=== PATIENT | female | born 1995 | race Hispanic/Latino ===

== ENCOUNTER → 2021-10-13 17:03 | Outpatient (CLI) | payer OTHER, SELFPAY ==
[2021-10-13 17:58] LABS: Appearance Urine UA CLEAR; Bilirubin Urine UA 2+ (NEGATIVE); Color Urine UA YELLOW; Glucose Urine UA NEGATIVE (Negative); Ketones Urine UA NEGATIVE (NEGATIVE); Leukocyte Esterase Urine UA NEGATIVE (NEGATIVE); Nitrite Urine UA NEGATIVE (Negative); Occult Blood Urine UA 1+ (Negative); Protein Urine UA NEGATIVE (Negative); Specific Gravity Urine UA 1.015 (1.000-1.035); Urobilinogen Urine UA 0.2 E.U./dL (0.2)
[2021-10-13 17:59] LABS: Add Manual Diff / Slide Review NO; Basophils Absolute Auto 0 /uL (0-100); Basophils Percent Auto 0.2 % (0-2); Eosinophils Absolute Auto 100 /uL (0-450); Eosinophils Percent Auto 1.1 % (2-4); Hematocrit 34.2 % (36-46); Hemoglobin 11.6 g/dL (12.0-16.0); Lymphocytes Absolute Auto 1000 /uL (1100-4500); Lymphocytes Percent Auto 12.8 % (25-40); Mean Corpuscular HGB Conc 33.8 % (30-36); Mean Corpuscular Hemoglobin 27.8 PG (26-34); Mean Corpuscular Volume 82.2 fL (80-100); Monocytes Absolute Auto 600 /uL (0-900); Monocytes Percent Auto 7.3 % (3-14); Neutrophils Absolute Auto 6100 /uL (1500-7000); Neutrophils Percent Auto 78.6 % (50-75); Platelet Count 206 X10^3/uL (150-400); Red Blood Cell Count 4.15 X10^6/uL (4.0-5.2); Red Cell Distribution Width 13.8 % (11.6-14.8); White Blood Cell Count 7.8 X10^3/uL (4.5-11.0)
[2021-10-13 18:24] LABS: pH Urine UA 7.5 (4.5-8.0)
[2021-10-13 18:28] LABS: Bacteria Urine None Seen; RBC Urine 1-5/HPF (0-5/HPF); WBC Urine None Seen (0-5/HPF)
[2021-10-13 18:32] LABS: Ictotest Urine Negative (Negative)
[2021-10-13 18:37] LABS: Free T4, Direct Thyroxine 1.09 ng/dL (0.78-2.19)
[2021-10-13 18:51] LABS: Thyroid Stimulating Hormone 7.14 uIU/mL (0.47-4.68)
[2021-10-14 08:26] LABS: RPR Screen Non Reactive (Non Reactive)
[2021-10-14 08:36] LABS: Varicella IgG Antibody 196 index (Immune >165)
[2021-10-15 17:27] LABS: Hepatitis B Surface Antigen NEGATIVE s/c (NEGATIVE)
[2021-10-15 17:29] LABS: HIV 1 & 2 Ab/Ag 4th Gen Combo NEGATIVE (NEGATIVE); Hep C Virus Ab w/Reflex Quant NEGATIVE s/c (NEGATIVE)
== END ==
PROVIDERS: Referring Provider Obstetrics & Gynecology; Visit Provider Obstetrics & Gynecology
DX: Z34.81 Encounter for supervision of other normal pregnancy, first trimester (principal); E03.9 Hypothyroidism, unspecified
CPT/HCPCS: 36415; 80055; 81003; 81015; 84439; 84443; 86787; 86803; 86850; 86900; 86901; 87086; 87389

== ENCOUNTER → 2021-12-22 10:44 | Outpatient (CLI) | payer OTHER, SELFPAY ==
--- NOTE | 2021-12-22 10:46 | DI.US.S_ITS ---
PROCEDURE: US OB >= 14 WEEKS FETUS INDICATIONS: 20 WEEK ANATOMY SCAN OUTSIDE/PRIOR DATING DATA: Last menstrual period (LMP): August 04, 2021 LMP-based estimated date of delivery (JOEY): May 11, 2022 First dating scan (date and location): December 22, 2021 Estimated date of delivery (JOEY) from first dating scan: May 05, 2022 The calculations are made using the ultrasound JOEY of May 05, 2022 TECHNIQUE: Real-time scanning was performed of the fetus, with image documentation and biometric measurements. Endovaginal scanning: Performed COMPARISON: None. FINDINGS: General: A single living intrauterine gestation is present. Presentation: Variable Placenta: Placental position is anterior left, without previa. Amniotic fluid index: 11.2 cm, normal range is 5-24 cm. Single deepest vertical pocket is 3.7 cm. heart rate: 152 beats per minute. Maternal cervical canal: Closed and 4.4 cm long. Normal lower limit is 2.5 cm. biometrics: Biparietal diameter: 21 weeks 1 day Head circumference: 20 weeks 5 days Abdominal circumference: 21 weeks 2 days Femur length: 20 weeks 1 day Clinically estimated gestational age: 20 weeks 0 days Composite gestational age from present scan: 20 weeks 6 days Estimated weight and percentile: 379 grams; 87th percentile Anatomic survey: Neuro: Ventricles are non-dilated at less than 10 mm. Cisterna magna is normal at 3-11 mm. Cerebellum is normal in size and morphology. Nuchal skin fold: Normal at less than 6 mm between 14-21 weeks gestational age. Face: Suboptimal due to maternal body habitus. Spine: Suboptimal. Heart: Suboptimal. Diaphragm: Diaphragm is intact. Stomach: Left-sided stomach is present. Kidneys: Suboptimal. Cord: 3-vessel cord. Placental cord insertion not well seen. Bladder: Normal in size. Extremities: All 4 extremities identified. IMPRESSION: 1. Single living intrauterine with ultrasound estimated gestational age of 20 weeks 6 days. 2. anatomic survey suboptimal secondary to maternal body habitus. Well visualized anatomy is within normal limits. 3. Normal amniotic fluid index. Dictated by: Di Troncoso MD, PhD on 12/22/2021 at 17:23 Approved by: Di Troncoso MD, PhD on 12/22/2021 at 17:28
== END ==
PROVIDERS: PCP Physician Assistant; Referring Provider Obstetrics & Gynecology; Visit Provider Obstetrics & Gynecology
DX: Z34.82 Encounter for supervision of other normal pregnancy, second trimester (principal); Z3A.20 20 weeks gestation of pregnancy
CPT/HCPCS: 76811

== ENCOUNTER 2021-12-31 11:08 | Emergency (ER) | payer OTHER, SELFPAY ==
[2021-12-31] VITALS (13 sets, daily range): BP systolic 103–134; BP diastolic 59–85; PULSE 82–99; RESP 15–21; TEMP 36.6; O2SAT 97–100; BMI 39.8
--- NOTE | 2021-12-31 11:17 | DI.RAD.S_ITS ---
PROCEDURE: XR CHEST 1V INDICATIONS: chest pain TECHNIQUE: One view of the chest was acquired. COMPARISON: None. FINDINGS: Surgical changes and devices: None. Lungs and pleura: Lungs are clear. No pleural effusions or pneumothorax. Mediastinum: Mediastinal contours appear normal. Heart size is normal. Bones and chest wall: No suspicious bony lesions. Overlying soft tissues appear unremarkable. IMPRESSION: No acute cardiopulmonary findings. Dictated by: Maria Del Carmen Galvan M.D. on 12/31/2021 at 12:17 Approved by: Maria Del Carmen Galvan M.D. on 12/31/2021 at 12:33
[2021-12-31 11:34] LABS: Add Manual Diff / Slide Review NO; Basophils Absolute Auto 0 /uL (0-100); Basophils Percent Auto 0.3 % (0-2); Eosinophils Absolute Auto 100 /uL (0-450); Eosinophils Percent Auto 0.9 % (2-4); Hematocrit 34.4 % (36-46); Hemoglobin 11.4 g/dL (12.0-16.0); Lymphocytes Absolute Auto 1000 /uL (1100-4500); Lymphocytes Percent Auto 11.9 % (25-40); Mean Corpuscular HGB Conc 33.1 % (30-36); Mean Corpuscular Hemoglobin 27.5 PG (26-34); Monocytes Absolute Auto 600 /uL (0-900); Monocytes Percent Auto 7.5 % (3-14); Neutrophils Absolute Auto 6700 /uL (1500-7000); Neutrophils Percent Auto 79.4 % (50-75); Platelet Count 203 X10^3/uL (150-400); Red Blood Cell Count 4.14 X10^6/uL (4.0-5.2); Red Cell Distribution Width 13.2 % (11.6-14.8); White Blood Cell Count 8.4 X10^3/uL (4.5-11.0)
[2021-12-31 11:43] LABS: Alanine Aminotransferase 25 IU/L (<35); Albumin 4.1 g/dL (3.5-5.0); Albumin Globulin Ratio 1.1 (1.0-2.8); Alkaline Phosphatase 81 U/L (38-126); Aspartate Aminotransferase 22 IU/L (14-36); BUN Creatinine Ratio 11.9 (6-22); Bilirubin Total 0.4 mg/dL (0.2-1.3); Blood Urea Nitrogen 7 mg/dL (7-17); Calcium 9.3 mg/dL (8.4-10.2); Carbon Dioxide 26 mmol/L (22-32); Chloride 102 mmol/L (98-107); Creatine Kinase < 20 U/L (30-135); Estimated Glomerular Filt Rate > 60.0 mL/min (>60); Globulin 3.9 g/dL (1.7-4.1); Glucose 107 mg/dL (70-100); HEMOLYSIS < 15 (0-50); Lipase 71 U/L (23-300); Magnesium 1.7 mg/dL (1.6-2.3); Potassium 3.9 mmol/L (3.4-5.1); Sodium 134 mmol/L (137-145)
[2021-12-31 11:55] LABS: Troponin I < 0.012 ng/mL (0.01-0.034)
[2021-12-31 13:00] LABS: RBC Urine 0-1/HPF (0-5/HPF); Squamous Epithelial Cell Urine 5-10 /HPF (0-5/HPF)
[2021-12-31 13:03] LABS: Bacteria Urine Few (2-10); WBC Urine 5-10/HPF (0-5/HPF)
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
--- NOTE | 2021-12-31 13:50 | PC.NURSE ---
bilateral blood pressures done at 1225 left arm 117/71 hr 86 right arm 112/68 hr 87
[2021-12-31 14:21] LABS: Troponin I < 0.012 ng/mL (0.01-0.034)
== END 2021-12-31 15:04 | disposition home or self-care (01) ==
PROVIDERS: Emergency Provider Emergency Medicine; PCP Physician Assistant; Referring Provider Obstetrics & Gynecology
DX: R07.89 Other chest pain (principal); R20.2 Paresthesia of skin
CPT/HCPCS: 36415; 71045; 80053; 81003; 81015; 82550; 83690; 83735; 84484; 85025; 87086; 93005; 99284

== ENCOUNTER → 2022-01-19 14:32 | Outpatient (CLI) | payer OTHER, SELFPAY ==
[2022-01-19 16:44] LABS: Free T4, Direct Thyroxine 1.08 ng/dL (0.78-2.19)
[2022-01-19 16:58] LABS: TSH w/ Reflex to FT4 1.84 uIU/mL (0.47-4.68)
== END ==
PROVIDERS: PCP Physician Assistant; Referring Provider Obstetrics & Gynecology; Visit Provider Obstetrics & Gynecology
DX: Z34.90 Encounter for supervision of normal pregnancy, unspecified, unspecified trimester (principal)
CPT/HCPCS: 36415; 84439; 84443

== ENCOUNTER → 2022-02-16 08:38 | Outpatient (CLI) | payer OTHER, SELFPAY ==
[2022-02-16 10:17] LABS: Hematocrit 31.9 % (36-46); Hemoglobin 10.6 g/dL (12.0-16.0)
[2022-02-16 10:33] LABS: GTT (PREG) 1 Hour PP 50gm Dose 102 mg/dL (76-139)
== END ==
PROVIDERS: PCP Physician Assistant; Referring Provider Obstetrics & Gynecology; Visit Provider Obstetrics & Gynecology
DX: Z34.83 Encounter for supervision of other normal pregnancy, third trimester (principal); Z3A.28 28 weeks gestation of pregnancy
CPT/HCPCS: 36415; 82950; 85014; 85018

== ENCOUNTER 2022-03-15 13:40 | Outpatient (CLI) | payer OTHER, SELFPAY ==
[2022-03-15 14:57] LABS: Appearance Urine UA CLOUDY; Bilirubin Urine UA NEGATIVE (NEGATIVE); Color Urine UA YELLOW; Glucose Urine UA NEGATIVE (Negative); Ketones Urine UA TRACE (NEGATIVE); Leukocyte Esterase Urine UA 2+ (NEGATIVE); Nitrite Urine UA NEGATIVE (Negative); Occult Blood Urine UA TRACE-INTACT (Negative); Protein Urine UA TRACE (Negative); Specific Gravity Urine UA 1.025 (1.000-1.035); Urobilinogen Urine UA 0.2 E.U./dL (0.2)
[2022-03-15 15:09] LABS: Amorphous Sediment Urine 1+; Bacteria Urine Occasional (0-1); Culture Indicated Urine Cult Not Indicated; RBC Urine 0-1/HPF (0-5/HPF); Squamous Epithelial Cell Urine 5-10 /HPF (0-5/HPF); WBC Urine 1-5/HPF (0-5/HPF)
[2022-03-15] MEDS: cephALEXin 250 MG CAPSULE 500 MG PO (15:46)
[2022-03-15 15:59] VITALS: BP 117/68; PULSE 100; RESP 20; TEMP 36.4
== END 2022-03-15 16:15 | disposition home or self-care (01) ==
LOC: LABOR 15:43 → OB 03-16 08:04
PROVIDERS: PCP Physician Assistant; Referring Provider Obstetrics & Gynecology; Visit Provider Obstetrics & Gynecology
DX: O36.8130 Decreased fetal movements, third trimester, not applicable or unspecified (principal); O47.03 False labor before 37 completed weeks of gestation, third trimester; Z3A.31 31 weeks gestation of pregnancy
CPT/HCPCS: 59025; 59050; 81003; 81015; G0378; G0379

== ENCOUNTER → 2022-04-02 14:47 | Outpatient (CLI) | payer OTHER, SELFPAY ==
[2022-04-02 15:57] LABS: Add Manual Diff / Slide Review NO; Basophils Absolute Auto 0 /uL (0-100); Basophils Percent Auto 0.2 % (0-2); Eosinophils Absolute Auto 100 /uL (0-450); Eosinophils Percent Auto 1.1 % (2-4); Hematocrit 33.8 % (36-46); Hemoglobin 11.4 g/dL (12.0-16.0); Lymphocytes Absolute Auto 1000 /uL (1100-4500); Lymphocytes Percent Auto 11.7 % (25-40); Mean Corpuscular HGB Conc 33.8 % (30-36); Mean Corpuscular Hemoglobin 27.5 PG (26-34); Mean Corpuscular Volume 81.5 fL (80-100); Monocytes Absolute Auto 700 /uL (0-900); Monocytes Percent Auto 8.7 % (3-14); Neutrophils Absolute Auto 6400 /uL (1500-7000); Neutrophils Percent Auto 78.3 % (50-75); Platelet Count 205 X10^3/uL (150-400); Red Blood Cell Count 4.14 X10^6/uL (4.0-5.2); White Blood Cell Count 8.2 X10^3/uL (4.5-11.0)
[2022-04-02 16:30] LABS: Free T4, Direct Thyroxine 1.13 ng/dL (0.78-2.19)
[2022-04-02 16:44] LABS: Thyroid Stimulating Hormone 1.57 uIU/mL (0.47-4.68)
== END ==
PROVIDERS: PCP Physician Assistant; Referring Provider Obstetrics & Gynecology; Visit Provider Obstetrics & Gynecology
DX: E03.9 Hypothyroidism, unspecified (principal); Z34.90 Encounter for supervision of normal pregnancy, unspecified, unspecified trimester
CPT/HCPCS: 36415; 84439; 84443; 85025

== ENCOUNTER → 2022-04-16 17:24 | Outpatient (CLI) | payer OTHER, SELFPAY ==
[2022-04-17 13:34] LABS: Strep Grp B PCR POS for Grp B Strep
== END ==
PROVIDERS: PCP Physician Assistant; Visit Provider Obstetrics & Gynecology
DX: Z34.83 Encounter for supervision of other normal pregnancy, third trimester (principal); Z3A.36 36 weeks gestation of pregnancy
CPT/HCPCS: 87653

== ENCOUNTER 2022-04-21 07:35 | Inpatient (IN) | payer OTHER, SELFPAY ==
[2022-04-21] MEDS: NIFEdipine 10 MG CAPSULE PO ×4 (08:40→10:03)
[2022-04-21] MEDS: LACTATED RINGERS 1,000 ML 1000 ML IV (09:40)
[2022-04-21] MEDS: LACTATED RINGERS 1,000 ML 100 ML IV ×4 (10:40→19:30)
[2022-04-21 11:31] LABS: Appearance Urine UA CLEAR; Bilirubin Urine UA NEGATIVE (NEGATIVE); Color Urine UA YELLOW; Glucose Urine UA NEGATIVE (Negative); Ketones Urine UA NEGATIVE (NEGATIVE); Leukocyte Esterase Urine UA 1+ (NEGATIVE); Nitrite Urine UA NEGATIVE (Negative); Occult Blood Urine UA NEGATIVE (Negative); Protein Urine UA NEGATIVE (Negative); Specific Gravity Urine UA <=1.005 (1.000-1.035); Urobilinogen Urine UA 0.2 E.U./dL (0.2)
[2022-04-21 11:41] LABS: pH Urine UA 6.5 (4.5-8.0)
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
[2022-04-21 11:50] LABS: Bacteria Urine Occasional (0-1); Culture Indicated Urine Specimen Cultured; RBC Urine 0-1/HPF (0-5/HPF); Squamous Epithelial Cell Urine 5-10 /HPF (0-5/HPF); WBC Urine 1-5/HPF (0-5/HPF)
--- NOTE | 2022-04-21 12:45 | PM.PREOP ---
Pre-operative Note COVID-19 COVID-19 status: Result pending Result date/Date tested (Pos, Neg/Pending): 04/21/22 Criteria for continued procedure: Expected advancement of disease process Interval Note History & Physical reviewed/Exam performed by Physician: Yes Changes to H&P: No
[2022-04-21 14:13] LABS: Add Manual Diff / Slide Review NO; Basophils Absolute Auto 0 /uL (0-100); Basophils Percent Auto 0.4 % (0-2); Eosinophils Absolute Auto 0 /uL (0-450); Eosinophils Percent Auto 0.6 % (2-4); Hemoglobin 11.8 g/dL (12.0-16.0); Lymphocytes Absolute Auto 900 /uL (1100-4500); Lymphocytes Percent Auto 11.3 % (25-40); Mean Corpuscular HGB Conc 34.6 % (30-36); Mean Corpuscular Hemoglobin 28.1 PG (26-34); Mean Corpuscular Volume 81.3 fL (80-100); Monocytes Absolute Auto 600 /uL (0-900); Monocytes Percent Auto 7.6 % (3-14); Neutrophils Absolute Auto 6300 /uL (1500-7000); Neutrophils Percent Auto 80.1 % (50-75); Platelet Count 200 X10^3/uL (150-400); Red Blood Cell Count 4.18 X10^6/uL (4.0-5.2); Red Cell Distribution Width 14.3 % (11.6-14.8); White Blood Cell Count 7.9 X10^3/uL (4.5-11.0)
[2022-04-21 14:30] VITALS: BP 120/69
[2022-04-21 14:58] LABS: COVID19 -Nasal RAPID Negative (Negative)
[2022-04-21] MEDS: CEFAZOLIN 2 GM/20 ML SYRINGE IV (15:50)
--- NOTE | 2022-04-21 16:16 | SUR.OPER ---
Supine on padded OR bed, head on pillow, arms secured on padded arm boards at <90 degrees abduction, legs uncrossed, safety belt at thigh, tape over blanket over lower legs. Directed and approved by surgeon
--- NOTE | 2022-04-21 16:28 | SUR.OPER ---
Viable baby boy delivered at 1611. Placenta delivered at 1612. Placenta and cord blood tubes sent with OB OFE Melo.
[2022-04-21 16:54] VITALS: BP 100/52; PULSE 74; RESP 12; TEMP 36.3; O2SAT 98
[2022-04-21 17:01] VITALS: BP 106/70; PULSE 78; RESP 18; O2SAT 98
[2022-04-21 17:11] VITALS: BP 108/69; PULSE 72; RESP 16; O2SAT 98
[2022-04-21 17:15] VITALS: BP 101/60; PULSE 71; RESP 17; TEMP 36.3; O2SAT 97
--- NOTE | 2022-04-21 17:23 | PM.OP.1 ---
Operative Date/Time/Diagnoses Date of procedure: 04/21/22 Time of procedure: 17:23 Pre-op diagnosis: Breech presentation in labor Post-op diagnosis: same Procedure & Clinicians Procedure: Primary low-transverse section Same procedure as scheduled: Yes Indications: Breech presentation in labor Surgeon: Obdulia Frias Click Yes if Unassisted: Yes Anesthesia Type: Spinal Operative Notes Findings: Normal tubes, ovaries, uterus. Viable male in complete breech presentation with Apgars of 8 9 weight 6 lb 13 oz Closure Type: primary Specimen(s): none sent Applied: catheter (Hernandez) Estimated Blood Loss (mL): 450 Blood products transfused: none Procedure in detail: The patient was brought to the operating room where she underwent a spinal for anesthesia. She was placed in a supine position with a left lateral tilt. A Hernandez catheter was placed. Pulsatile stockings were placed and functional throughout the case. 2 g of Ancef were given IV prior to the incision. Warming was in place. The patient was prepped and draped in usual sterile fashion. A low transverse incision was made with a scalpel and the incision was carried down to the fascial layer which was incised transversely with scissors. The midline attachments are superiorly and inferiorly. Some bleeding was controlled Bovie. The rectus muscles were in the midline and the peritoneal incision was made with no damage to internal structures. The peritoneum was incised and superiorly and inferiorly. The incision was stretched with the surgeon and residential real estate assistant placing traction. Bladder blade was placed and a bladder flap was developed and the bladder held away from the lower uterine segment. An incision was made in the uterus with the scalpel and the incision was extended with stretching. The breech was elevated out of the abdomen and a moist towel placed around the baby and with fundal pressure by the residential real estate assistant and delivered to the shoulders. The baby was rotated allowing delivery of the arms and the head delivered easily. The baby was delivered. The was bulb suctioned for clear fluid and handed off to the warmer. Cord blood was collected. The placenta delivered spontaneously with traction. The uterus was cleaned with clean laps. The uterine incision was closed in 2 layers of 0 chromic suture the first a running locking layer the second an imbricating layer. The bladder peritoneum was repaired with 2-0 Vicryl suture. The gutters were cleaned of any remaining fluids and ovaries and tubes were observed to be normal. Adequate hemostasis was noted. The perineum was closed with 2-0 Vicryl suture. The fascia layer was closed with 0 Vicryl suture with 2 stitches. The incision was irrigated and adequate hemostasis noted. The incision was closed with interrupted 3-0 Vicryl sutures and then a subcuticular stitch of 4-0 Vicryl suture. Steri-Strips were placed. The uterus was massaged to remove any clots. The patient went to recovery room in good condition. Counts of instruments and sponges were correct. Complications: none Post-operative Condition: stable Disposition: other ( Center) Plan for aftercare: Routine post section
--- NOTE | 2022-04-21 17:42 | SUR.PHASEI ---
1717: [facility] Report given to OFE Melo using SBAR with time allowed for questions. All personal belonging with pt during transport.
[2022-04-21] MEDS: KETOROLAC 30 MG/ML VIAL IV (22:35)
[2022-04-22 01:16] VITALS: BP 122/74; PULSE 77; RESP 16; TEMP 36.9
[2022-04-22] MEDS: KETOROLAC 30 MG/ML VIAL IV ×2 (04:34→11:10)
[2022-04-22] MEDS: LEVOTHYROXINE 112 MCG TABLET PO (05:27)
[2022-04-22 06:52] LABS: Add Manual Diff / Slide Review NO; Basophils Absolute Auto 0 /uL (0-100); Basophils Percent Auto 0.2 % (0-2); Eosinophils Absolute Auto 100 /uL (0-450); Eosinophils Percent Auto 0.8 % (2-4); Hematocrit 32.7 % (36-46); Hemoglobin 11.1 g/dL (12.0-16.0); Lymphocytes Absolute Auto 1000 /uL (1100-4500); Lymphocytes Percent Auto 10.7 % (25-40); Mean Corpuscular HGB Conc 33.8 % (30-36); Mean Corpuscular Hemoglobin 27.8 PG (26-34); Mean Corpuscular Volume 82.2 fL (80-100); Monocytes Absolute Auto 900 /uL (0-900); Monocytes Percent Auto 9.6 % (3-14); Neutrophils Absolute Auto 7500 /uL (1500-7000); Neutrophils Percent Auto 78.7 % (50-75); Platelet Count 171 X10^3/uL (150-400); Red Blood Cell Count 3.98 X10^6/uL (4.0-5.2); Red Cell Distribution Width 14.4 % (11.6-14.8); White Blood Cell Count 9.5 X10^3/uL (4.5-11.0)
[2022-04-22] MEDS: DOCUSATE 100 MG CAPSULE 200 MG PO (09:01)
[2022-04-22] MEDS: PRENATAL VIT,CALC/IRON/FOLIC 1 TABLET 1 TAB PO (09:01)
[2022-04-22] MEDS: ACETAMINOPHEN 325 MG TABLET 650 MG PO ×3 (09:01→21:49)
--- NOTE | 2022-04-22 11:48 | PM.OBPN.1 ---
Subjective - OB Subjective Patient comments: no complaints, pain well controlled, tolerating diet and flatus present baby status: doing well Corea feeding status: exclusively breast feeding Narrative: Patient is POD#1 s/p pCS for breech in the setting of labor at 37 weeks. Is ambulating, voiding, tolerating PO, passing flatus, mild lochia, no other symptoms or concerns. Date Patient Seen: 04/22/22 Time Patient Seen: 22:01 Exam Vital Signs (past 8 hours): 115/72, HR 84 Oxygen Delivery Method Room Air Const General: cooperative, healthy appearing, comfortable and well groomed Resp Effort & Inspection: normal respiratory effort Auscultation: clear to auscultation bilaterally Cardio Rate: regular rate Rhythm: regular rhythm Heart Sounds: murmur systolic GI Palpation: soft and No tender Other: Fundus firm, 1 below u Objective Labs Result Diagrams: 04/22/22 05:57 Labs: Laboratory Results - last 24 hr 04/21/22 04/21/22 04/21/22 11:00 11:23 13:30 WBC 7.9 RBC 4.18 Hgb 11.8 L Hct 34.0 L MCV 81.3 MCH 28.1 MCHC 34.6 RDW 14.3 Plt Count 200 Neut % (Auto) 80.1 H Lymph % (Auto) 11.[address] [place] % (Auto) 7.6 Eos % (Auto) 0.6 L Baso % (Auto) 0.4 Neut # (Auto) 6300 Lymph # (Auto) [address] [place] # (Auto) 600 Eos # (Auto) 0 Baso # (Auto) 0 Urine RBC 0-1/hpf Urine WBC 1-5/hpf Ur Squamous Epith Cells 5-10 /hpf H Urine Bacteria Occasional (0-1) Ur Culture Indicated? Specimen cultured SARS-CoV-2 (PCR) Negative Blood Type Antibody Screen 04/21/22 04/21/22 04/22/22 14:07 19:22 05:57 WBC 9.5 RBC 3.98 L Hgb 11.1 L Hct 32.7 L MCV 82.2 MCH 27.8 MCHC 33.8 RDW 14.4 Plt Count 171 Neut % (Auto) 78.7 H Lymph % (Auto) 10.[address] [place] % (Auto) 9.6 Eos % (Auto) 0.8 L Baso % (Auto) 0.2 Neut # (Auto) 7500 H Lymph # (Auto) [address] [place] # (Auto) 900 Eos # (Auto) 100 Baso # (Auto) 0 Urine RBC Urine WBC Ur Squamous Epith Cells Urine Bacteria Ur Culture Indicated? SARS-CoV-2 (PCR) Blood Type O Positive O Positive Antibody Screen Negative Negative Assessment & Plan Plan day: 1 plan OB: routine postop care Comments: Routine postop care. Anticipate discharge tomorrow AM. Time Spent With Patient Time: Total time spent is greater than 50% in coordination of care (as documented) at patient's floor/unit and/or counseling patient: Time with patient: 15-24 minutes
[2022-04-22] MEDS: IBUPROFEN 600 MG TABLET PO (18:49)
[2022-04-23] MEDS: OXYCODONE IR 5 MG TABLET PO ×2 (00:43→06:44)
[2022-04-23] MEDS: IBUPROFEN 600 MG TABLET PO ×2 (03:26→09:15)
[2022-04-23] MEDS: ACETAMINOPHEN 325 MG TABLET 650 MG PO ×2 (03:27→09:16)
[2022-04-23] MEDS: LEVOTHYROXINE 112 MCG TABLET PO (05:22)
[2022-04-23] MEDS: PRENATAL VIT,CALC/IRON/FOLIC 1 TABLET 1 TAB PO (09:16)
--- NOTE | 2022-04-23 10:43 | PM.OBDS.1 ---
Discharge Providers Provider Date of admission: 04/21/22 07:35 Discharge Date: 04/23/22 Primary care physician: Reg Rodgers PA-C Consults: 04/21/22 18:08 Consult to Health And Safety Technician Routine Comment: Discharge provider: Obdulia Frias MD Summary Hospital Course Date Patient Seen: 04/23/22 Time Patient Seen: 10:00 Diagnoses: Primary section for breech presentation Hospital Course: Patient was admitted in early labor and breech presentation so underwent a primary low-transverse section. Patient is urinating and ambulating well. She is passing gas. Pain is under control. She denies headaches, scotomata, epigastric pain. Breast-feeding is going well. Peripartum Data Delivery Method: Section Procedures: Primary low-transverse section complications: none 1: Gender: Male Disposition of : home Discharge Diagnosis (1) Delivery by section for breech presentation: Status: Acute Status at Discharge Cognitive/behavioral status at discharge: oriented Functional status at discharge: independent ambulation Overall status at discharge: patient is progressing back to baseline Time Spent with Patient Time attestation: Total time spent providing and/or coordinating discharge services: Objective Labs Result Diagrams: 04/22/22 05:57 Exam Vital Signs (past 8 hours): Blood pressure 122/77, pulse 74, temperature 98.5? Oxygen Delivery Method Room Air Narrative Exam Narrative: Patient's abdomen is soft, nontender. Uterus is firm, at U, nontender. Dressing is clean, dry, intact. Mild lochia. Extremities with trace edema and nontender. Patient's blood type is O positive, she is rubella immune, and received Tdap in the 3rd trimester. Discharge Plan Discharge Plan Patient Disposition: Home Discharge orders & Medications Prescriptions: New oxycodone 5 mg tablet 5 mg PO Q6H PRN (Reason: pain) Qty: 20 0RF Rx Instructions: Take as often as every 6 hours for pain. Continued levothyroxine 112 mcg tablet 112 mcg PO DAILY Qty: 30 2RF prenat.vits,orquidea,[id number] Tablet 1 tab PO DAILY Discontinued cephalexin 500 mg capsule 500 mg PO BID Qty: 10 0RF Rx Instructions: Take twice daily. Follow up/Referrals: Dana Gunn MD [Physician] - 1 Week (Appointment on Tuesday, April at 2:45 pm with for incision check.) Diet/Activity/Treatments Diet: Regular Activity: Nothing in the vagina for 6 weeks. Avoid lifting more than 10 pounds for 6 weeks. If you have increasing bleeding, fevers, chills, nausea, headaches, visual changes, or any other symptoms, call or come to the emergency room. Skin/Wound/Dressing Care Report to your healthcare provider any signs of infection, such as:: chills, fever, night sweats, increased pain, unusual drainage and unusual redness Dressing: To be removed in 1 week in clinic. Discharge Data Primary Care Provider: Reg Rodgers
== END 2022-04-23 11:30 | disposition home or self-care (01) | DRG 788 ==
PROVIDERS: Specialist; Admitting Provider Obstetrics & Gynecology; PCP Physician Assistant; Referring Provider Obstetrics & Gynecology; Visit Provider Obstetrics & Gynecology
PROC: 10D00Z1 Extraction of Products of Conception, Low, Open Approach (ICD-10-PCS; CPT 59514; principal; 2022-04-21 14:45)
DX: O32.1XX0 Maternal care for breech presentation, not applicable or unspecified (principal); Z3A.36 36 weeks gestation of pregnancy; Z37.0 Single live birth; O99.824 Streptococcus B carrier state complicating childbirth; O99.284 Endocrine, nutritional and metabolic diseases complicating childbirth; E03.9 Hypothyroidism, unspecified; Z20.822 Contact with and (suspected) exposure to COVID-19; O99.02 Anemia complicating childbirth; D64.9 Anemia, unspecified
CPT/HCPCS: 59025; 59050; 59400; 59409; 59510; 59514; 81001; 85025; 86850; 86900; 86901; 87086; 87635; 96360; C9803; G0379; J0690; J1885; J2274; J2590